=== PATIENT | female | born 1985 ===

== ENCOUNTER 2018-08-26 00:11 | Inpatient (IN) | payer BC ==
[2018-08-26] MEDS ORDERED: Sodium Chloride 0.9% 10 ML Syringe FLUSH PRN (00:22)
[2018-08-26] MEDS ORDERED: Methylergonovine 0.2 MG/1 ML Amp IM PRN (00:22)
[2018-08-26] MEDS ORDERED: Tranexamic Acid 1,000 MG in Sodium Chloride 0.9% 100 ML IV PRN (00:22)
[2018-08-26] MEDS ORDERED: Nalbuphine 10 MG/1 ML Vial IVPUSH PRN (00:22)
[2018-08-26] MEDS ORDERED: Sodium Chloride 0.9% 2.5 ML Syringe FLUSH PRN (00:22)
[2018-08-26] MEDS ORDERED: Carboprost Tromethamine 250 MCG/1 ML Amp IM PRN (00:22)
[2018-08-26] MEDS ORDERED: Misoprostol 25 MCG (1/4 of 100 MCG) Tab VAG PRN (00:22)
[2018-08-26] MEDS ORDERED: Misoprostol 200 MCG Tab PO PRN (00:22)
[2018-08-26] MEDS ORDERED: Lidocaine 1% 50 ML MDV INJECT PRN (00:22)
[2018-08-26] MEDS ORDERED: Water For Irrigation,Sterile 1,000 ML Container IRR PRN (00:22)
[2018-08-26] MEDS ORDERED: Sodium Chloride 0.9% 10 ML SDV IV PRN (00:22)
[2018-08-26] MEDS ORDERED: Terbutaline 1 MG/ML SDV SUBCUT PRN (00:22)
[2018-08-26] MEDS ORDERED: Oxytocin/0.9 % Sodium Chloride 30 UNIT/500 ML BAG IV SCH ×2 (00:30)
[2018-08-26] MEDS: Misoprostol 25 MCG (1/4 of 100 MCG) Tab VAG PRN ×2 (01:45→07:31)
[2018-08-26] MEDS: Butorphanol 1 MG/ML SDV IVPUSH PRN ×3 (14:39→19:23)
[2018-08-26] MEDS: Ondansetron 4 MG/2 ML SDV IV PRN (18:35)
[2018-08-26] MEDS: Lactated Ringers 1,000 ML IV SCH ×2 (19:00→20:01)
[2018-08-26] MEDS ORDERED: Lidocaine HCl/EPINEPHrine 5 ML IJ ONE (19:47)
--- NOTE | 2018-08-26 20:21 | PCM.PREANE ---
Preanesthetic Assessment - Anesthesia/Transfusion/Family Hx Anesthesia History: Prior Anesthesia Without Reaction Family History of Anesthesia Reaction: No Transfusion History: No Prior Transfusion(s) - Review of Systems General: No Symptoms Pulmonary: No Symptoms Cardiovascular: No Symptoms Gastrointestinal: No Symptoms Neurological: No Symptoms Other: Reports: None - Physical Assessment NPO Status Date: 08/26/18 NPO Status Time: 13:00 (burger) Height: 5 ft 3 in Weight: 87.09 kg - Lab Values: Laboratory Last Values WBC 12.40 K/uL (4.0-11.0) H 08/26/18 00:40 RBC 3.64 M/uL (4.30-5.90) L 08/26/18 00:40 Hgb 12.0 g/dL (12.0-16.0) 08/26/18 00:40 Hct 35.4 % (36.0-46.0) L 08/26/18 00:40 MCV 97.3 fL (80.0-98.0) 08/26/18 00:40 MCH 33.0 pg (27.0-32.0) H 08/26/18 00:40 MCHC 33.9 g/dL (31.0-37.0) 08/26/18 00:40 RDW Std Deviation 43.5 fl (28.0-62.0) 08/26/18 00:40 RDW Coeff of Artem 13 % (11.0-15.0) 08/26/18 00:40 Plt Count 290 K/uL (150-400) 08/26/18 00:40 MPV 11.90 fL (7.40-12.00) 08/26/18 00:40 Blood Type O POSITIVE 08/26/18 00:40 Antibody Screen NEGATIVE 08/26/18 00:40 - Allergies Allergies/Adverse Reactions: Allergies Allergy/AdvReac Type Severity Reaction Status Date / Time No Known Allergies Allergy Verified 08/26/18 00:27 PreAnesthesia Questionnaire Gastrointestinal History: Reports: Cholelithiasis MEDICAL ONCOLOGIST History: Reports: , Spontaneous Other OB/BYN History: D&C 2003 Musculoskeletal History: Reports: Other (See Below) Other Musculoskeletal History: Broken neck 1996 Neurological History: Reports: Migraines - Infectious Disease History Infectious Disease History: Reports: Herpes - Past Surgical History GI Surgical History: Reports: Cholecystectomy Female Surgical History: Reports: D&C Musculoskeletal Surgical History: Reports: Carpal Tunnel - SUBSTANCE USE Smoking Status *Q: Former Smoker Tobacco Use Within Last Twelve Months: Cigarettes Second Hand Smoke Exposure: No Recreational Drug Use History: No - CURRENT (IN HOUSE) MEDS Current Meds: Current Medications Butorphanol Tartrate (Stadol) 1 mg IVPUSH Q1H PRN PRN Reason: Pain Last Admin: 08/26/18 19:23 Dose: 1 mg Carboprost Tromethamine (Hemabate Ds) 250 mcg IM ASDIRECTED PRN PRN Reason: Post Hemorrhage Lactated Ringer's (Ringers, Lactated) 1,000 mls @ 150 mls/hr IV ASDIRECTED LIT Last Admin: 08/26/18 20:01 Dose: 999 mls/hr Oxytocin/Sodium Chloride (Oxytocin 30 Unit/500 Ml-Ns) 30 unit in 500 mls @ 999 mls/hr IV TITRATE LIT Oxytocin/Sodium Chloride (Oxytocin 30 Unit/500 Ml-Ns) 30 unit in 500 mls @ 2 mls/hr IV TITRATE LIT; Protocol Tranexamic Acid 1,000 mg/ (Sodium Chloride) 110 mls @ 660 mls/hr IV ONETIME PRN PRN Reason: Bleeding Lidocaine HCl (Xylocaine 1%) 50 ml INJECT ONETIME PRN PRN Reason: Laceration repair Methylergonovine Maleate (Methergine) 0.2 mg IM ASDIRECTED PRN PRN Reason: Post Hemorrhage Misoprostol (Cytotec) 200 mcg PO ONETIME PRN PRN Reason: Post Hemorrhage Misoprostol (Cytotec) 25 mcg VAG ONETIME PRN PRN Reason: Cervical Ripening Last Admin: 08/26/18 07:31 Dose: 25 mcg Misoprostol (Cytotec) 25 mcg VAG Q4H PRN PRN Reason: Cervical Ripening Nalbuphine HCl (Nubain) 10 mg IVPUSH Q1H PRN PRN Reason: Pain (severe 7-10) Ondansetron HCl (Zofran) 4 mg IV Q6H PRN PRN Reason: Nausea/Vomiting Last Admin: 08/26/18 18:35 Dose: 4 mg Sodium Chloride (Saline Flush) 10 ml FLUSH ASDIRECTED PRN PRN Reason: Keep Vein Open Sodium Chloride (Saline Flush) 2.5 ml FLUSH ASDIRECTED PRN PRN Reason: Keep Vein Open Sodium Chloride (Normal Saline) 10 ml IV ASDIRECTED PRN PRN Reason: IV Use Sterile Water (Sterile Water For Irrigation) 1,000 ml IRR ASDIRECTED PRN PRN Reason: delivery Terbutaline Sulfate (Brethine) 0.25 mg SUBCUT ASDIRECTED PRN PRN Reason: Tacysystole Discontinued Medications Fentanyl/Bupivacaine HCl (Wbkagvnc-Zebox-Ch 2 Mcg/Ml-0.125%) Confirm Administered Dose 100 mls @ as directed .ROUTE .STK-MED ONE Stop: 08/26/18 19:48 Lidocaine/Epinephrine (Lidocaine 1.5%-Epi 1:200,000) Confirm Administered Dose 5 ml IJ .STK-MED ONE Stop: 08/26/18 19:48
--- NOTE | 2018-08-27 00:48 | PCM.SN ---
- Free Text/Narrative Note: Called for patient rating contractions 09/02. Infusion rate increased to 10 ml per hour.
[2018-08-27] MEDS ORDERED: Bupivacaine 0.5% 30 ML SDV ONE ×3 (01:22→11:08)
[2018-08-27] MEDS: Lactated Ringers 1,000 ML IV SCH ×3 (03:12→19:08)
--- NOTE | 2018-08-27 05:21 | PCM.SN ---
- Free Text/Narrative Note: Called to dose epidural. Patient is starting to rate contractions at 4/10 and getting stronger. Patient has rested comfortably since the last bolus by Dr Saxena. 5ml of Bupivacaine 0.5% given at 0508. Tolerates well.
[2018-08-27] MEDS: Ondansetron 4 MG/2 ML SDV IV PRN ×2 (07:19→18:39)
[2018-08-27] MEDS ORDERED: fentaNYL 100 MCG/2 ML SDV ONE (07:26)
--- NOTE | 2018-08-27 07:47 | PCM.SN ---
- Free Text/Narrative Note: Patient complaining of back labor again. Dosed with 5 ml of 0.5% Bupivacaine at 0710. Got some relief but not comfortable yet. Spoke with Dr Saxena. He orders 5 ml of 0.5% Bupivacaine again and 100 mcg of Fentanyl. This is completed at 0732. Tolerated well.
--- NOTE | 2018-08-27 11:18 | PCM.SN ---
- Free Text/Narrative Note: Called to redose epidural. Patient is more comfortable lying on a side but is not tolerating supine position. Epidural bolused with 10 ml of 0.5% Bupivacaine. Tolerates well. Dr Jay is coming after noon to check the patient and determine if we can progress with labor or go to C Section.
[2018-08-27] MEDS ORDERED: Bupivacaine 0.5% 10 ML SDV ONE ×2 (15:02→20:19)
[2018-08-27] MEDS ORDERED: Ampicillin 2 GM in Sodium Chloride 0.9% 100 ML IV ONE (18:09)
[2018-08-27] MEDS ORDERED: Acetaminophen 500 MG Tab PO ONE (18:12)
[2018-08-27] MEDS ORDERED: Ampicillin 2 GM AdvVial IV ONE (18:18)
[2018-08-27] MEDS ORDERED: Sodium Chloride 0.9% 100 ML ONE (18:18)
[2018-08-27] MEDS ORDERED: Acetaminophen 500 MG Tab ONE (18:19)
[2018-08-27] MEDS ORDERED: Acetaminophen 1,000 MG in Premix Bag 1 BAG IV ONE (18:30)
[2018-08-27] MEDS ORDERED: Propofol 200 MG/20 ML SDV ONE (20:25)
[2018-08-27] MEDS ORDERED: fentaNYL 250 MCG/5 ML SDV ONE (20:25)
[2018-08-27] MEDS ORDERED: Morphine PF 10 MG/10 ML SDV ONE (20:26)
[2018-08-27] MEDS ORDERED: Clindamycin Phosphate in D5W 900 MG in Premix Bag 1 BAG IV SCH ×2 (21:00)
[2018-08-27] MEDS ORDERED: Naloxone 0.4 MG/ML Syringe IVPUSH PRN (21:32)
[2018-08-27] MEDS ORDERED: diphenhydrAMINE 50 MG/ML SDV IVPUSH PRN ×2 (21:32→22:29)
[2018-08-27] MEDS ORDERED: Nalbuphine 10 MG/1 ML Vial IVPUSH PRN (21:32)
[2018-08-27] MEDS ORDERED: Ondansetron 4 MG/2 ML SDV IVPUSH PRN ×2 (21:32→22:29)
[2018-08-27] MEDS ORDERED: fentaNYL 100 MCG/2 ML SDV IVPUSH PRN (21:32)
[2018-08-27] MEDS ORDERED: Acetaminophen/oxyCODONE 325-5 MG Tab PO PRN ×2 (21:32→22:29)
[2018-08-27] MEDS ORDERED: Octyl 2-Cyanoacrylate 1 Tube ONE (21:44)
[2018-08-27] MEDS ORDERED: HYDROmorphone 2 MG/ML Syringe ONE (21:51)
[2018-08-27] MEDS ORDERED: Ondansetron 4 MG/2 ML SDV ONE (21:51)
[2018-08-27] MEDS ORDERED: Oxytocin 10 Units/1 ML SDV ONE ×2 (21:51→22:04)
[2018-08-27] MEDS ORDERED: Bupivacaine 0.25% 10 ML SDV ONE (21:58)
[2018-08-27] MEDS ORDERED: Lanolin 100% Cream 7 GM Tube TOP PRN (22:29)
[2018-08-27] MEDS ORDERED: Bisacodyl 10 MG Supp RECTAL PRN (22:29)
[2018-08-27] MEDS ORDERED: Lactated Ringers 1,000 ML IV SCH (22:30)
--- NOTE | 2018-08-27 22:37 | PCM.OPNOTE ---
- General Post-Op/Procedure Note Date of Surgery/Procedure: 08/27/18 Operative Procedure(s): Primary Lower transverse Findings: Live male delivered at 2119 2/9 , weight 3500g , Pre Op Diagnosis: 33 yo @ 36w3d with cholestasis. Arrest of Descent Post-Op Diagnosis: same Anesthesia Technique: Epidural Primary Surgeon: Asha Clay Anesthesia Provider: zach Pathology: placenta Fluid Replacement, Intraop: 1,000 Output, Urine Amount: 200 EBL in mLs: 1,000 Complications: None Condition: Good
[2018-08-27] MEDS: Ketorolac 30 MG/ML SDV IVPUSH SCH (23:13)
--- NOTE | 2018-08-27 23:33 | PCM.POSTAN ---
POST ANESTHESIA ASSESSMENT - MENTAL STATUS Mental Status: Alert - RESPIRATORY Respiratory Status: Respiratory Rate WNL, Airway Patent, O2 Saturation Stable, Supplemental Oxygen - CARDIOVASCULAR CV Status: Pulse Rate WNL, Blood Pressure Stable - GASTROINTESTINAL GI Status: No Symptoms - POST OP HYDRATION Hydration Status: Adequate & Stable
[2018-08-28] MEDS: Ketorolac 30 MG/ML SDV IVPUSH SCH ×4 (04:57→22:15)
[2018-08-28] MEDS: Ampicillin/Sulbactam Na 3 GM in Sodium Chloride 0.9% 100 ML IV SCH ×3 (05:49→22:30)
--- NOTE | 2018-08-28 10:18 | PCM48HPAN ---
Post Anesthesia Note - EVALUATION WITHIN 48HRS OF ANESTHETIC Vital Signs in Normal Range: Yes Patient Participated in Evaluation: Yes Respiratory Function Stable: Yes Airway Patent: Yes Cardiovascular Function Stable: Yes Hydration Status Stable: Yes Pain Control Satisfactory: Yes Nausea and Vomiting Control Satisfactory: Yes Mental Status Recovered: Yes Resp Rate: 16
[2018-08-28] MEDS: Docusate Sodium 100 MG Cap PO SCH ×2 (14:04→21:38)
--- NOTE | 2018-08-29 03:17 | OR ---
SURGEON: FLOYD YANG DATE OF PROCEDURE:08/27/2018 PREOPERATIVE DIAGNOSIS: A 33-year-old, , at 36 weeks 3 days, undergoing induction of labor for cholestasis. POSTOPERATIVE DIAGNOSIS: A 33-year-old, , at 36 weeks 3 days, undergoing induction of labor for cholestasis. PROCEDURE: Primary lower segment section. ESTIMATED BLOOD LOSS: 800. IV FLUIDS: 1000. URINE OUTPUT: 200. ANESTHESIA: Epidural. NOTES AND FINDINGS: A live male delivered at 2117 hours, score is 2 and 9, weight is 3500 g. BRIEF HISTORY: She is a 33-year-old, , who was undergoing induction of labor for cholestasis. The patient had elevated LFTs and bile acid was 40. She was complaining of worsening itching. As a result, she was scheduled for induction of labor as per [facility] guidance. Induction of labor was started with Cytotec. After Cytotec, the patient received a Kwan balloon, and Kwan balloon was out, she was 5. She was ruptured, an IUPC was placed, and Pitocin was started. Pitocin had to be titrated up and down because she was occasionally having a category 2 heart tracing with late deceleration. The patient then made change all the way to fully dilated. She was encouraged to push. However, the infant was in OP position and after about 3 hours of pushing, there was no descent, so the patient was advised for . The patient understood the risks, benefits, and alternatives, and she decided to proceed. DESCRIPTION OF PROCEDURE: The patient was taken to the operating room where epidural anesthesia was topped up. She was prepared and draped in the dorsal supine position with the leftward tilt. A Pfannenstiel skin incision was made with a scalpel and carried down to the fascia with the Bovie. The fascia was incised and extended upward and laterally. The rectus muscle was in the midline down to the level of pubic symphysis. The peritoneum was entered in bluntly, and then the lower uterine segment was observed and the Hernan retractor was placed. The bladder flap was created. Lower uterine incision was made. Then also the was in cephalic position and being in cephalic position, she was encouraged. The head was attempted to be elevated out of the pelvis with some difficulty. Then, the hand was placed through the vagina to elevate the head. As a result, the head was elevated up and the baby was delivered. The cord was clamped and cut. Infant was handed over to the awaiting plasma center technician, and the uterine incision was sutured in 2 layers, first layer with 0 Vicryl and second layer with 2-0 Monocryl. The peritoneum was then closed without difficulty. Then, the rectus muscle was apposed also with 2-0 Vicryl and the fascia was closed with 0 Vicryl. The subcutaneous fat was also approximated. The skin was closed with 3-0 Monocryl on a Bhupendra needle. All instrument and pad counts were correct x2. The patient tolerated the procedure well and was taken to the recovery room in stable condition. CHRISTIN LUCAS /[id number] MTDD
[2018-08-29] MEDS: Acetaminophen/oxyCODONE 325-5 MG Tab PO PRN ×4 (06:13→22:05)
[2018-08-29] MEDS: Ibuprofen 800 MG Tab PO PRN ×2 (08:44→18:08)
[2018-08-29] MEDS: Docusate Sodium 100 MG Cap PO SCH ×2 (08:44→20:30)
--- NOTE | 2018-08-29 10:17 | PCM.PNPP ---
- General Info Date of Service: 08/28/18 Subjective Update: 33 yo P1 s/p Primary for arrest of decent , POD 1, ambulating , voiding and tolerating regular diet , Functional Status: Reports: Pain Controlled, Tolerating Diet, Ambulating, Urinating - Review of Systems General: Reports: No Symptoms HEENT: Reports: No Symptoms Pulmonary: Reports: No Symptoms Cardiovascular: Reports: No Symptoms Gastrointestinal: Reports: No Symptoms Genitourinary: Reports: No Symptoms Musculoskeletal: Reports: No Symptoms Skin: Reports: No Symptoms Neurological: Reports: No Symptoms Psychiatric: Reports: No Symptoms - General Info Date of Service: 08/29/18 - Patient Data Vital Signs - Most Recent: Last Vital Signs Temp 36.4 C 08/29/18 07:35 Pulse 68 08/29/18 07:35 Resp 17 08/29/18 07:35 BP 103/57 L 08/29/18 07:35 Pulse Ox 97 08/29/18 07:35 Weight - Most Recent: 87.09 kg I&O - Last 24 Hours: Intake & Output 08/28/18 08/29/18 08/29/18 22:59 06:59 14:59 Output Total 1700 Balance -1700 Med Orders - Current: Current Medications Bisacodyl (Dulcolax) 10 mg RECTAL ONETIME PRN PRN Reason: Constipation Butorphanol Tartrate (Stadol) 1 mg IVPUSH Q1H PRN PRN Reason: Pain Last Admin: 08/26/18 19:23 Dose: 1 mg Carboprost Tromethamine (Hemabate Ds) 250 mcg IM ASDIRECTED PRN PRN Reason: Post Hemorrhage Diphenhydramine HCl (Benadryl) 25 mg IVPUSH Q6H PRN PRN Reason: Itching or Nausea Docusate Sodium (Colace) 100 mg PO BID LIT Last Admin: 08/29/18 08:44 Dose: 100 mg Emollient Ointment (Lansinoh Hpa) 0 gm TOP ASDIRECTED PRN PRN Reason: Sore Nipples Last Admin: 08/28/18 12:09 Dose: 1 applic Fentanyl (Sublimaze) 50 mcg IVPUSH Q1H PRN PRN Reason: Pain (severe 7-10) Lactated Ringer's (Ringers, Lactated) 1,000 mls @ 150 mls/hr IV ASDIRECTED LIT Last Admin: 08/27/18 19:08 Dose: 125 mls/hr Oxytocin/Sodium Chloride (Oxytocin 30 Unit/500 Ml-Ns) 30 unit in 500 mls @ 999 mls/hr IV TITRATE LIT Oxytocin/Sodium Chloride (Oxytocin 30 Unit/500 Ml-Ns) 30 unit in 500 mls @ 2 mls/hr IV TITRATE LIT; Protocol Last Titration: 08/27/18 19:47 Dose: 24 munits/min, 24 mls/hr Tranexamic Acid 1,000 mg/ (Sodium Chloride) 110 mls @ 660 mls/hr IV ONETIME PRN PRN Reason: Bleeding Lactated Ringer's (Ringers, Lactated) 1,000 mls @ 125 mls/hr IV ASDIRECTED LIT Last Admin: 08/28/18 02:19 Dose: 125 mls/hr Ibuprofen (Motrin) 800 mg PO Q8H PRN PRN Reason: mild pain or fever Last Admin: 08/29/18 08:44 Dose: 800 mg Lidocaine HCl (Xylocaine 1%) 50 ml INJECT ONETIME PRN PRN Reason: Laceration repair Methylergonovine Maleate (Methergine) 0.2 mg IM ASDIRECTED PRN PRN Reason: Post Hemorrhage Misoprostol (Cytotec) 200 mcg PO ONETIME PRN PRN Reason: Post Hemorrhage Misoprostol (Cytotec) 25 mcg VAG ONETIME PRN PRN Reason: Cervical Ripening Last Admin: 08/26/18 07:31 Dose: 25 mcg Misoprostol (Cytotec) 25 mcg VAG Q4H PRN PRN Reason: Cervical Ripening Nalbuphine HCl (Nubain) 10 mg IVPUSH Q1H PRN PRN Reason: Pain (severe 7-10) Nalbuphine HCl (Nubain) 5 mg IVPUSH ASDIRECTED PRN PRN Reason: Itching Ondansetron HCl (Zofran) 4 mg IV Q6H PRN PRN Reason: Nausea/Vomiting Last Admin: 08/27/18 18:39 Dose: 4 mg Ondansetron HCl (Zofran) 4 mg IVPUSH Q6H PRN PRN Reason: Nausea Ondansetron HCl (Zofran) 4 mg IVPUSH Q4H PRN PRN Reason: Nausea/Vomiting Last Admin: 08/28/18 03:48 Dose: 4 mg Oxycodone/Acetaminophen (Percocet 325-5 Mg) 2 tab PO Q6H PRN PRN Reason: Pain (moderate 4-6) Oxycodone/Acetaminophen (Percocet 325-5 Mg) 1 tab PO Q4H PRN PRN Reason: Pain (moderate 4-6) Last Admin: 08/29/18 06:13 Dose: 1 tab Oxycodone/Acetaminophen (Percocet 325-5 Mg) 2 tab PO Q4H PRN PRN Reason: Pain (moderate 4-6) Sodium Chloride (Saline Flush) 10 ml FLUSH ASDIRECTED PRN PRN Reason: Keep Vein Open Sodium Chloride (Saline Flush) 2.5 ml FLUSH ASDIRECTED PRN PRN Reason: Keep Vein Open Sodium Chloride (Normal Saline) 10 ml IV ASDIRECTED PRN PRN Reason: IV Use Sterile Water (Sterile Water For Irrigation) 1,000 ml IRR ASDIRECTED PRN PRN Reason: delivery Terbutaline Sulfate (Brethine) 0.25 mg SUBCUT ASDIRECTED PRN PRN Reason: Tacysystole Discontinued Medications Acetaminophen (Tylenol Extra Strength) 1,000 mg PO ONETIME ONE Stop: 08/27/18 18:13 Last Admin: 08/28/18 14:03 Dose: Not Given Acetaminophen (Tylenol Extra Strength) Confirm Administered Dose 1,000 mg .ROUTE .STK-MED ONE Stop: 08/27/18 18:20 Last Admin: 08/28/18 14:04 Dose: Not Given Ampicillin Sodium (Ampicillin) Confirm Administered Dose 2 gm IV .STK-MED ONE Stop: 08/27/18 18:19 Last Admin: 08/28/18 14:03 Dose: Not Given Bupivacaine HCl (Marcaine 0.5%) Confirm Administered Dose 30 ml .ROUTE .STK-MED ONE Stop: 08/27/18 01:23 Last Admin: 08/28/18 14:02 Dose: Not Given Bupivacaine HCl (Marcaine 0.5%) Confirm Administered Dose 30 ml .ROUTE .STK-MED ONE Stop: 08/27/18 04:58 Last Admin: 08/28/18 14:02 Dose: Not Given Bupivacaine HCl (Marcaine 0.5%) Confirm Administered Dose 30 ml .ROUTE .STK-MED ONE Stop: 08/27/18 11:09 Last Admin: 08/28/18 14:03 Dose: Not Given Bupivacaine HCl (Sensorcaine-Mpf 0.5%) Confirm Administered Dose 10 ml .ROUTE .[facility] ONE Stop: 08/27/18 15:03 Last Admin: 08/28/18 14:03 Dose: Not Given Bupivacaine HCl (Sensorcaine-Mpf 0.5%) Confirm Administered Dose 20 ml .ROUTE .[facility] ONE Stop: 08/27/18 20:20 Last Admin: 08/28/18 14:04 Dose: Not Given Bupivacaine HCl (Sensorcaine-Mpf 0.25%) Confirm Administered Dose 10 ml .ROUTE .[facility] ONE Stop: 08/27/18 21:59 Last Admin: 08/28/18 14:04 Dose: Not Given Diphenhydramine HCl (Benadryl) 25 mg IVPUSH Q4H PRN PRN Reason: Itching Stop: 08/28/18 21:32 Fentanyl (Sublimaze) Confirm Administered Dose 100 mcg .ROUTE .[facility] ONE Stop: 08/27/18 07:27 Last Admin: 08/28/18 14:02 Dose: Not Given Fentanyl (Sublimaze) Confirm Administered Dose 250 mcg .ROUTE .[facility] ONE Stop: 08/27/18 20:26 Hydromorphone HCl (Dilaudid) Confirm Administered Dose 2 mg .ROUTE .[facility] ONE Stop: 08/27/18 21:52 Fentanyl/Bupivacaine HCl (Xrkuaprs-Qhgip-Fc 2 Mcg/Ml-0.125%) Confirm Administered Dose 100 mls @ as directed .ROUTE .[facility] ONE Stop: 08/26/18 19:48 Fentanyl/Bupivacaine HCl (Ptoetcrg-Gisld-Zy 2 Mcg/Ml-0.125%) Confirm Administered Dose 100 mls @ as directed .ROUTE .[facility] ONE Stop: 08/27/18 02:32 Last Admin: 08/28/18 14:02 Dose: Not Given Fentanyl/Bupivacaine HCl (Rgjabeuz-Cjhtg-Ma 2 Mcg/Ml-0.125%) Confirm Administered Dose 100 mls @ as directed .ROUTE .[facility] ONE Stop: 08/27/18 10:01 Last Admin: 08/28/18 14:03 Dose: Not Given Fentanyl/Bupivacaine HCl (Dlbdmfaj-Bwtpo-Xm 2 Mcg/Ml-0.125%) Confirm Administered Dose 100 mls @ as directed .ROUTE .STK-MED ONE Stop: 08/27/18 16:42 Last Admin: 08/28/18 14:03 Dose: Not Given Fentanyl/Bupivacaine HCl (Mtcpooja-Vxouz-Bv 2 Mcg/Ml-0.125%) Confirm Administered Dose 100 mls @ as directed .ROUTE .STK-MED ONE Stop: 08/27/18 17:01 Last Admin: 08/28/18 14:03 Dose: Not Given Ampicillin Sodium 2 gm/ Sodium (Chloride) 100 mls @ 200 mls/hr IV ONETIME ONE Stop: 08/27/18 18:38 Last Admin: 08/27/18 18:38 Dose: 200 mls/hr Gentamicin Sulfate 100 mg/ (Sodium Chloride) 52.5 mls @ 100 mls/hr IV ONETIME ONE Stop: 08/27/18 18:41 Last Admin: 08/27/18 19:21 Dose: 100 mls/hr Sodium Chloride (Normal Saline) Confirm Administered Dose 100 mls @ as directed .ROUTE .STK-MED ONE Stop: 08/27/18 18:19 Last Admin: 08/28/18 14:04 Dose: Not Given Acetaminophen 1,000 mg/ Premix 100 mls @ 400 mls/hr IV NOW ONE Stop: 08/27/18 18:44 Last Admin: 08/27/18 19:01 Dose: 400 mls/hr Acetaminophen (Ofirmev) Confirm Administered Dose 100 mls @ as directed IV .STK- MED ONE Stop: 08/27/18 18:35 Last Admin: 08/28/18 14:04 Dose: Not Given Clindamycin Phosphate 900 mg/ (Sodium Chloride) 56 mls @ 100 mls/hr IV Q8H LIT Stop: 08/28/18 21:04 Clindamycin Phosphate 900 mg/ (Premix) 50 mls @ 100 mls/hr IV Q8H LIT Ampicillin Sodium/Sulbactam (Sodium 3 gm/ Sodium Chloride) 100 mls @ 200 mls/ hr IV Q8H LIT Stop: 08/28/18 22:29 Last Admin: 08/28/18 22:30 Dose: 200 mls/hr Ketorolac Tromethamine (Toradol) 30 mg IVPUSH Q6H [facility] Stop: 08/28/18 22:31 Last Admin: 08/28/18 22:15 Dose: 30 mg Lidocaine/Epinephrine (Lidocaine 1.5%-Epi 1:200,000) Confirm Administered Dose 5 ml IJ .STK-MED ONE Stop: 08/26/18 19:48 Morphine Sulfate (Duramorph Pf) Confirm Administered Dose 10 mg .ROUTE .STK-MED ONE Stop: 08/27/18 20:27 Naloxone HCl (Narcan) 0.1 mg IVPUSH ONETIME PRN PRN Reason: Respiratory Depression Stop: 08/28/18 21:32 Octyl Cyanoacrylate (Dermabond Advance) Confirm Administered Dose 1 applic .ROUTE .STK-MED ONE Stop: 08/27/18 21:45 Last Admin: 08/28/18 14:04 Dose: Not Given Ondansetron HCl (Zofran) Confirm Administered Dose 4 mg .ROUTE .STK-MED ONE Stop: 08/27/18 21:52 Oxytocin (Pitocin) Confirm Administered Dose 30 unit .ROUTE .STK-MED ONE Stop: 08/27/18 21:52 Oxytocin (Pitocin) Confirm Administered Dose 20 unit .ROUTE .STK-MED ONE Stop: 08/27/18 22:05 Propofol (Diprivan 20 Ml) Confirm Administered Dose 200 mg .ROUTE .STK-MED ONE Stop: 08/27/18 20:26 - Interaction Support Person: - Recovery Exam Fundal Tone: Firm Fundal Level: At Umbilicus Fundal Placement: Midline Lochia Amount: Scant Lochia Color: Rubra/Red Perineum Description: Intact, Minimal Bruising/Swelling Episiotomy/Laceration: None Bladder Status: Voiding Urinary Elimination: Voided - Exam General: Alert HEENT: Pupils Equal Lungs: Clear to Auscultation Cardiovascular: Regular Rate, Regular Rhythm GI/Abdominal Exam: Normal Bowel Sounds Skin: Warm Psy/Mental Status: Alert - Problem List & Annotations (1) delivery delivered SNOMED Code(s): 106867000 Code(s): O82 - ENCOUNTER FOR DELIVERY WITHOUT INDICATION Status: Acute Current Visit: Yes - Problem List Review Problem List Initiated/Reviewed/Updated: Yes - My Orders Last 24 Hours: My Active Orders 08/29/18 04:30 Ibuprofen [Motrin] 800 mg PO Q8H PRN 08/29/18 10:10 BASIC METABOLIC PANEL,BMP [CHEM] Urgent - Assessment Assessment:: 33 yo P1 s/p Primary LTCS POD1 stable - Plan Plan:: Pain control as need CMP with normal LFTs and elevated Creatinine ( probably prerenal due to high BUN ) Routine care
--- NOTE | 2018-08-29 10:20 | PCM.PNPP ---
- General Info Date of Service: 08/29/18 Subjective Update: 33 yo P1 s/p Primary for arrest of decent , POD 2, ambulating , voiding and tolerating regular diet , Functional Status: Reports: Pain Controlled, Tolerating Diet, Ambulating, Urinating - Review of Systems General: Reports: No Symptoms HEENT: Reports: No Symptoms Pulmonary: Reports: No Symptoms Cardiovascular: Reports: No Symptoms Gastrointestinal: Reports: No Symptoms Genitourinary: Reports: No Symptoms Musculoskeletal: Reports: No Symptoms Skin: Reports: No Symptoms Neurological: Reports: No Symptoms Psychiatric: Reports: No Symptoms - General Info Date of Service: 08/29/18 - Patient Data Vital Signs - Most Recent: Last Vital Signs Temp 36.4 C 08/29/18 07:35 Pulse 68 08/29/18 07:35 Resp 17 08/29/18 07:35 BP 103/57 L 08/29/18 07:35 Pulse Ox 97 08/29/18 07:35 Weight - Most Recent: 87.09 kg I&O - Last 24 Hours: Intake & Output 08/28/18 08/29/18 08/29/18 22:59 06:59 14:59 Output Total 1700 Balance -1700 Med Orders - Current: Current Medications Bisacodyl (Dulcolax) 10 mg RECTAL ONETIME PRN PRN Reason: Constipation Butorphanol Tartrate (Stadol) 1 mg IVPUSH Q1H PRN PRN Reason: Pain Last Admin: 08/26/18 19:23 Dose: 1 mg Carboprost Tromethamine (Hemabate Ds) 250 mcg IM ASDIRECTED PRN PRN Reason: Post Hemorrhage Diphenhydramine HCl (Benadryl) 25 mg IVPUSH Q6H PRN PRN Reason: Itching or Nausea Docusate Sodium (Colace) 100 mg PO BID LIT Last Admin: 08/29/18 08:44 Dose: 100 mg Emollient Ointment (Lansinoh Hpa) 0 gm TOP ASDIRECTED PRN PRN Reason: Sore Nipples Last Admin: 08/28/18 12:09 Dose: 1 applic Fentanyl (Sublimaze) 50 mcg IVPUSH Q1H PRN PRN Reason: Pain (severe 7-10) Lactated Ringer's (Ringers, Lactated) 1,000 mls @ 150 mls/hr IV ASDIRECTED LIT Last Admin: 08/27/18 19:08 Dose: 125 mls/hr Oxytocin/Sodium Chloride (Oxytocin 30 Unit/500 Ml-Ns) 30 unit in 500 mls @ 999 mls/hr IV TITRATE LIT Oxytocin/Sodium Chloride (Oxytocin 30 Unit/500 Ml-Ns) 30 unit in 500 mls @ 2 mls/hr IV TITRATE LIT; Protocol Last Titration: 08/27/18 19:47 Dose: 24 munits/min, 24 mls/hr Tranexamic Acid 1,000 mg/ (Sodium Chloride) 110 mls @ 660 mls/hr IV ONETIME PRN PRN Reason: Bleeding Lactated Ringer's (Ringers, Lactated) 1,000 mls @ 125 mls/hr IV ASDIRECTED LIT Last Admin: 08/28/18 02:19 Dose: 125 mls/hr Ibuprofen (Motrin) 800 mg PO Q8H PRN PRN Reason: mild pain or fever Last Admin: 08/29/18 08:44 Dose: 800 mg Lidocaine HCl (Xylocaine 1%) 50 ml INJECT ONETIME PRN PRN Reason: Laceration repair Methylergonovine Maleate (Methergine) 0.2 mg IM ASDIRECTED PRN PRN Reason: Post Hemorrhage Misoprostol (Cytotec) 200 mcg PO ONETIME PRN PRN Reason: Post Hemorrhage Misoprostol (Cytotec) 25 mcg VAG ONETIME PRN PRN Reason: Cervical Ripening Last Admin: 08/26/18 07:31 Dose: 25 mcg Misoprostol (Cytotec) 25 mcg VAG Q4H PRN PRN Reason: Cervical Ripening Nalbuphine HCl (Nubain) 10 mg IVPUSH Q1H PRN PRN Reason: Pain (severe 7-10) Nalbuphine HCl (Nubain) 5 mg IVPUSH ASDIRECTED PRN PRN Reason: Itching Ondansetron HCl (Zofran) 4 mg IV Q6H PRN PRN Reason: Nausea/Vomiting Last Admin: 08/27/18 18:39 Dose: 4 mg Ondansetron HCl (Zofran) 4 mg IVPUSH Q6H PRN PRN Reason: Nausea Ondansetron HCl (Zofran) 4 mg IVPUSH Q4H PRN PRN Reason: Nausea/Vomiting Last Admin: 08/28/18 03:48 Dose: 4 mg Oxycodone/Acetaminophen (Percocet 325-5 Mg) 2 tab PO Q6H PRN PRN Reason: Pain (moderate 4-6) Oxycodone/Acetaminophen (Percocet 325-5 Mg) 1 tab PO Q4H PRN PRN Reason: Pain (moderate 4-6) Last Admin: 08/29/18 06:13 Dose: 1 tab Oxycodone/Acetaminophen (Percocet 325-5 Mg) 2 tab PO Q4H PRN PRN Reason: Pain (moderate 4-6) Sodium Chloride (Saline Flush) 10 ml FLUSH ASDIRECTED PRN PRN Reason: Keep Vein Open Sodium Chloride (Saline Flush) 2.5 ml FLUSH ASDIRECTED PRN PRN Reason: Keep Vein Open Sodium Chloride (Normal Saline) 10 ml IV ASDIRECTED PRN PRN Reason: IV Use Sterile Water (Sterile Water For Irrigation) 1,000 ml IRR ASDIRECTED PRN PRN Reason: delivery Terbutaline Sulfate (Brethine) 0.25 mg SUBCUT ASDIRECTED PRN PRN Reason: Tacysystole Discontinued Medications Acetaminophen (Tylenol Extra Strength) 1,000 mg PO ONETIME ONE Stop: 08/27/18 18:13 Last Admin: 08/28/18 14:03 Dose: Not Given Acetaminophen (Tylenol Extra Strength) Confirm Administered Dose 1,000 mg .ROUTE .STK-MED ONE Stop: 08/27/18 18:20 Last Admin: 08/28/18 14:04 Dose: Not Given Ampicillin Sodium (Ampicillin) Confirm Administered Dose 2 gm IV .STK-MED ONE Stop: 08/27/18 18:19 Last Admin: 08/28/18 14:03 Dose: Not Given Bupivacaine HCl (Marcaine 0.5%) Confirm Administered Dose 30 ml .ROUTE .STK-MED ONE Stop: 08/27/18 01:23 Last Admin: 08/28/18 14:02 Dose: Not Given Bupivacaine HCl (Marcaine 0.5%) Confirm Administered Dose 30 ml .ROUTE .STK-MED ONE Stop: 08/27/18 04:58 Last Admin: 08/28/18 14:02 Dose: Not Given Bupivacaine HCl (Marcaine 0.5%) Confirm Administered Dose 30 ml .ROUTE .STK-MED ONE Stop: 08/27/18 11:09 Last Admin: 08/28/18 14:03 Dose: Not Given Bupivacaine HCl (Sensorcaine-Mpf 0.5%) Confirm Administered Dose 10 ml .[address] .[facility] ONE Stop: 08/27/18 15:03 Last Admin: 08/28/18 14:03 Dose: Not Given Bupivacaine HCl (Sensorcaine-Mpf 0.5%) Confirm Administered Dose 20 ml .[address] .[facility] ONE Stop: 08/27/18 20:20 Last Admin: 08/28/18 14:04 Dose: Not Given Bupivacaine HCl (Sensorcaine-Mpf 0.25%) Confirm Administered Dose 10 ml .ROUTE .[facility] ONE Stop: 08/27/18 21:59 Last Admin: 08/28/18 14:04 Dose: Not Given Diphenhydramine HCl (Benadryl) 25 mg IVPUSH Q4H PRN PRN Reason: Itching Stop: 08/28/18 21:32 Fentanyl (Sublimaze) Confirm Administered Dose 100 mcg .[address] .[facility] ONE Stop: 08/27/18 07:27 Last Admin: 08/28/18 14:02 Dose: Not Given Fentanyl (Sublimaze) Confirm Administered Dose 250 mcg .[address]TE .[facility] ONE Stop: 08/27/18 20:26 Hydromorphone HCl (Dilaudid) Confirm Administered Dose 2 mg .[address] .[facility] ONE Stop: 08/27/18 21:52 Fentanyl/Bupivacaine HCl (Kuouwref-Uuhhn-Dt 2 Mcg/Ml-0.125%) Confirm Administered Dose 100 mls @ as directed .ROUTE .[facility] ONE Stop: 08/26/18 19:48 Fentanyl/Bupivacaine HCl (Dbcqalhg-Mfjhs-Ud 2 Mcg/Ml-0.125%) Confirm Administered Dose 100 mls @ as directed .ROUTE .[facility] ONE Stop: 08/27/18 02:32 Last Admin: 08/28/18 14:02 Dose: Not Given Fentanyl/Bupivacaine HCl (Vvqhbfzw-Howzy-Kv 2 Mcg/Ml-0.125%) Confirm Administered Dose 100 mls @ as directed .ROUTE .[facility] ONE Stop: 08/27/18 10:01 Last Admin: 08/28/18 14:03 Dose: Not Given Fentanyl/Bupivacaine HCl (Mewqdkzj-Bmzfj-Ol 2 Mcg/Ml-0.125%) Confirm Administered Dose 100 mls @ as directed .ROUTE .STK-MED ONE Stop: 08/27/18 16:42 Last Admin: 08/28/18 14:03 Dose: Not Given Fentanyl/Bupivacaine HCl (Mryxnauh-Xwlwe-Xy 2 Mcg/Ml-0.125%) Confirm Administered Dose 100 mls @ as directed .ROUTE .STK-MED ONE Stop: 08/27/18 17:01 Last Admin: 08/28/18 14:03 Dose: Not Given Ampicillin Sodium 2 gm/ Sodium (Chloride) 100 mls @ 200 mls/hr IV ONETIME ONE Stop: 08/27/18 18:38 Last Admin: 08/27/18 18:38 Dose: 200 mls/hr Gentamicin Sulfate 100 mg/ (Sodium Chloride) 52.5 mls @ 100 mls/hr IV ONETIME ONE Stop: 08/27/18 18:41 Last Admin: 08/27/18 19:21 Dose: 100 mls/hr Sodium Chloride (Normal Saline) Confirm Administered Dose 100 mls @ as directed .ROUTE .STK-MED ONE Stop: 08/27/18 18:19 Last Admin: 08/28/18 14:04 Dose: Not Given Acetaminophen 1,000 mg/ Premix 100 mls @ 400 mls/hr IV NOW ONE Stop: 08/27/18 18:44 Last Admin: 08/27/18 19:01 Dose: 400 mls/hr Acetaminophen (Ofirmev) Confirm Administered Dose 100 mls @ as directed IV .STK- MED ONE Stop: 08/27/18 18:35 Last Admin: 08/28/18 14:04 Dose: Not Given Clindamycin Phosphate 900 mg/ (Sodium Chloride) 56 mls @ 100 mls/hr IV Q8H LIT Stop: 08/28/18 21:04 Clindamycin Phosphate 900 mg/ (Premix) 50 mls @ 100 mls/hr IV Q8H LIT Ampicillin Sodium/Sulbactam (Sodium 3 gm/ Sodium Chloride) 100 mls @ 200 mls/ hr IV Q8H LIT Stop: 08/28/18 22:29 Last Admin: 08/28/18 22:30 Dose: 200 mls/hr Ketorolac Tromethamine (Toradol) 30 mg IVPUSH Q6H [facility] Stop: 08/28/18 22:31 Last Admin: 08/28/18 22:15 Dose: 30 mg Lidocaine/Epinephrine (Lidocaine 1.5%-Epi 1:200,000) Confirm Administered Dose 5 ml IJ .STK-MED ONE Stop: 08/26/18 19:48 Morphine Sulfate (Duramorph Pf) Confirm Administered Dose 10 mg .ROUTE .STK-MED ONE Stop: 08/27/18 20:27 Naloxone HCl (Narcan) 0.1 mg IVPUSH ONETIME PRN PRN Reason: Respiratory Depression Stop: 08/28/18 21:32 Octyl Cyanoacrylate (Dermabond Advance) Confirm Administered Dose 1 applic .ROUTE .STK-MED ONE Stop: 08/27/18 21:45 Last Admin: 08/28/18 14:04 Dose: Not Given Ondansetron HCl (Zofran) Confirm Administered Dose 4 mg .ROUTE .STK-MED ONE Stop: 08/27/18 21:52 Oxytocin (Pitocin) Confirm Administered Dose 30 unit .ROUTE .STK-MED ONE Stop: 08/27/18 21:52 Oxytocin (Pitocin) Confirm Administered Dose 20 unit .ROUTE .STK-MED ONE Stop: 08/27/18 22:05 Propofol (Diprivan 20 Ml) Confirm Administered Dose 200 mg .ROUTE .STK-MED ONE Stop: 08/27/18 20:26 - Interaction Support Person: - Recovery Exam Fundal Tone: Firm Fundal Level: At Umbilicus Fundal Placement: Midline Lochia Amount: Scant Lochia Color: Rubra/Red Perineum Description: Intact, Minimal Bruising/Swelling Episiotomy/Laceration: None Bladder Status: Voiding Urinary Elimination: Voided - Exam General: Alert HEENT: Pupils Equal Lungs: Clear to Auscultation Cardiovascular: Regular Rate, Regular Rhythm GI/Abdominal Exam: Normal Bowel Sounds Extremities: Normal Inspection Skin: Warm Wound/Incisions: Dressing Dry and Intact Neurological: No New Focal Deficit Psy/Mental Status: Alert - Problem List & Annotations (1) delivery delivered SNOMED Code(s): 086008253 Code(s): O82 - ENCOUNTER FOR DELIVERY WITHOUT INDICATION Status: Acute Current Visit: Yes - Problem List Review Problem List Initiated/Reviewed/Updated: Yes - My Orders Last 24 Hours: My Active Orders 08/29/18 04:30 Ibuprofen [Motrin] 800 mg PO Q8H PRN 08/29/18 10:10 BASIC METABOLIC PANEL,BMP [CHEM] Urgent - Assessment Assessment:: 33 yo P1 s/p Primary LTCS POD2 , BMP pending, she is breast and bottle feeding , will stay 1 day due to hyperbilirubinemia, normal lochia - Plan Plan:: Pain control as need BMP today , will follow Discharge home tomorrow
[2018-08-29 10:43] LABS: CHLORIDE,CL 106 mmol/L (98-107); SODIUM,NA 139 mmol/L (136-145)
[2018-08-30] MEDS: Ibuprofen 800 MG Tab PO PRN (02:20)
--- NOTE | 2018-08-30 07:49 | PCM.DCSUM1 ---
Discharge Summary - Hospital Course Free Text/Narrative:: POD#3. Doing well. Ready for discharge. Precautions discussed. Diagnosis: Stroke: No - Discharge Data Discharge Date: 08/30/18 Discharge Disposition: Home, Self-Care 01 Condition: Good - Patient Summary/Data Operative Procedure(s) Performed: Primary Lower transverse - Patient Instructions Diet: Usual Diet as Tolerated Activity: Apply Ice, No Lifting Over 10 Pounds, No Lifting Over 20 Pounds Driving: Do Not Drive (Do not drive until painfree without medications.) Showering/Bathing: May Shower Wound/Incision Care: Keep Operative Site/Wound Site Clean and Dry Notify Provider of: Fever, Increased Pain, Swelling and Redness, Drainage Other/Special Instructions: Nothing per vagina for 6 weeks. Call office if fever over 101 F, uncontrolled pain or bleeding more than a large pad per hour. May use percocet or ibuprofen or Tylenol for pain. Continue to take vitamins while . visit in 2 weeks and 6 weeks - Discharge Plan *PRESCRIPTION DRUG MONITORING PROGRAM REVIEWED*: Yes *COPY OF PRESCRIPTION DRUG MONITORING REPORT IN PATIENT JAYDON: Yes Prescriptions/Med Rec: Acetaminophen/oxyCODONE [Percocet 325-5 MG] 1 - 2 tab PO Q4H PRN 5 Days #20 tablet PRN Reason: Pain (Moderate 4-6) Ibuprofen [Motrin] 800 mg PO Q8H PRN 5 Days #30 tablet PRN Reason: mild pain or fever Home Medications: Home Meds Acetaminophen/oxyCODONE [Percocet 325-5 MG] 1 - 2 tab PO Q4H PRN 5 Days #20 tablet 08/29/18 [Rx] Ibuprofen [Motrin] 800 mg PO Q8H PRN 5 Days #30 tablet 08/29/18 [Rx] Referrals: [facility] [Outside] Asah Clay MD [Physician] - (2 week- September 13@ 1:30pm w/ Dr. Jay week- October 11 @ 11:15am w/ Dr. Jay) - Discharge Summary/Plan Comment DC Time >30 min.: No - Patient Data Vitals - Most Recent: Last Vital Signs Temp 36.2 C 08/30/18 07:20 Pulse 72 08/30/18 07:20 Resp 16 08/30/18 07:20 BP 118/68 08/30/18 07:20 Pulse Ox 97 08/30/18 07:20 Weight - Most Recent: 87.09 kg Lab Results - Last 24 hrs: Laboratory Results - last 24 hr 08/29/18 Range/Units 10:21 Sodium 139 (136-145) mmol/L Potassium 4.5 (3.5-5.1) mmol/L Chloride 106 (98-107) mmol/L Carbon Dioxide 24.9 (21.0-32.0) mmol/L BUN 16 (7.0-18.0) mg/dL Creatinine 0.8 (0.6-1.0) mg/dL Est Cr Clr Drug Dosing 84.29 mL/min Estimated GFR (MDRD) > 60.0 ml/min Glucose 67 L (74-106) mg/dL Calcium 8.8 (8.5-10.1) mg/dL Med Orders - Current: Current Medications Bisacodyl (Dulcolax) 10 mg RECTAL ONETIME PRN PRN Reason: Constipation Butorphanol Tartrate (Stadol) 1 mg IVPUSH Q1H PRN PRN Reason: Pain Last Admin: 08/26/18 19:23 Dose: 1 mg Carboprost Tromethamine (Hemabate Ds) 250 mcg IM ASDIRECTED PRN PRN Reason: Post Hemorrhage Diphenhydramine HCl (Benadryl) 25 mg IVPUSH Q6H PRN PRN Reason: Itching or Nausea Docusate Sodium (Colace) 100 mg PO BID [facility] Last Admin: 08/29/18 20:30 Dose: 100 mg Emollient Ointment (Lansinoh Hpa) 0 gm TOP ASDIRECTED PRN PRN Reason: Sore Nipples Last Admin: 08/28/18 12:09 Dose: 1 applic Fentanyl (Sublimaze) 50 mcg IVPUSH Q1H PRN PRN Reason: Pain (severe 7-10) Lactated Ringer's (Ringers, Lactated) 1,000 mls @ 150 mls/hr IV ASDIRECTED [facility] Last Admin: 08/27/18 19:08 Dose: 125 mls/hr Oxytocin/Sodium Chloride (Oxytocin 30 Unit/500 Ml-Ns) 30 unit in 500 mls @ 999 mls/hr IV TITRATE [facility] Oxytocin/Sodium Chloride (Oxytocin 30 Unit/500 Ml-Ns) 30 unit in 500 mls @ 2 mls/hr IV TITRATE LIT; Protocol Last Titration: 08/27/18 19:47 Dose: 24 munits/min, 24 mls/hr Tranexamic Acid 1,000 mg/ (Sodium Chloride) 110 mls @ 660 mls/hr IV ONETIME PRN PRN Reason: Bleeding Lactated Ringer's (Ringers, Lactated) 1,000 mls @ 125 mls/hr IV ASDIRECTED LIT Last Admin: 08/28/18 02:19 Dose: 125 mls/hr Ibuprofen (Motrin) 800 mg PO Q8H PRN PRN Reason: mild pain or fever Last Admin: 08/30/18 02:20 Dose: 800 mg Lidocaine HCl (Xylocaine 1%) 50 ml INJECT ONETIME PRN PRN Reason: Laceration repair Methylergonovine Maleate (Methergine) 0.2 mg IM ASDIRECTED PRN PRN Reason: Post Hemorrhage Misoprostol (Cytotec) 200 mcg PO ONETIME PRN PRN Reason: Post Hemorrhage Misoprostol (Cytotec) 25 mcg VAG ONETIME PRN PRN Reason: Cervical Ripening Last Admin: 08/26/18 07:31 Dose: 25 mcg Misoprostol (Cytotec) 25 mcg VAG Q4H PRN PRN Reason: Cervical Ripening Nalbuphine HCl (Nubain) 10 mg IVPUSH Q1H PRN PRN Reason: Pain (severe 7-10) Nalbuphine HCl (Nubain) 5 mg IVPUSH ASDIRECTED PRN PRN Reason: Itching Ondansetron HCl (Zofran) 4 mg IV Q6H PRN PRN Reason: Nausea/Vomiting Last Admin: 08/27/18 18:39 Dose: 4 mg Ondansetron HCl (Zofran) 4 mg IVPUSH Q6H PRN PRN Reason: Nausea Ondansetron HCl (Zofran) 4 mg IVPUSH Q4H PRN PRN Reason: Nausea/Vomiting Last Admin: 08/28/18 03:48 Dose: 4 mg Oxycodone/Acetaminophen (Percocet 325-5 Mg) 2 tab PO Q6H PRN PRN Reason: Pain (moderate 4-6) Oxycodone/Acetaminophen (Percocet 325-5 Mg) 1 tab PO Q4H PRN PRN Reason: Pain (moderate 4-6) Last Admin: 08/29/18 22:05 Dose: 1 tab Oxycodone/Acetaminophen (Percocet 325-5 Mg) 2 tab PO Q4H PRN PRN Reason: Pain (moderate 4-6) Sodium Chloride (Saline Flush) 10 ml FLUSH ASDIRECTED PRN PRN Reason: Keep Vein Open Sodium Chloride (Saline Flush) 2.5 ml FLUSH ASDIRECTED PRN PRN Reason: Keep Vein Open Sodium Chloride (Normal Saline) 10 ml IV ASDIRECTED PRN PRN Reason: IV Use Sterile Water (Sterile Water For Irrigation) 1,000 ml IRR ASDIRECTED PRN PRN Reason: delivery Terbutaline Sulfate (Brethine) 0.25 mg SUBCUT ASDIRECTED PRN PRN Reason: Tacysystole Discontinued Medications Acetaminophen (Tylenol Extra Strength) 1,000 mg PO ONETIME ONE Stop: 08/27/18 18:13 Last Admin: 08/28/18 14:03 Dose: Not Given Acetaminophen (Tylenol Extra Strength) Confirm Administered Dose 1,000 mg .ROUTE .STK-MED ONE Stop: 08/27/18 18:20 Last Admin: 08/28/18 14:04 Dose: Not Given Ampicillin Sodium (Ampicillin) Confirm Administered Dose 2 gm IV .STK-MED ONE Stop: 08/27/18 18:19 Last Admin: 08/28/18 14:03 Dose: Not Given Bupivacaine HCl (Marcaine 0.5%) Confirm Administered Dose 30 ml .ROUTE .STK-MED ONE Stop: 08/27/18 01:23 Last Admin: 08/28/18 14:02 Dose: Not Given Bupivacaine HCl (Marcaine 0.5%) Confirm Administered Dose 30 ml .ROUTE .STK-MED ONE Stop: 08/27/18 04:58 Last Admin: 08/28/18 14:02 Dose: Not Given Bupivacaine HCl (Marcaine 0.5%) Confirm Administered Dose 30 ml .ROUTE .STK-MED ONE Stop: 08/27/18 11:09 Last Admin: 08/28/18 14:03 Dose: Not Given Bupivacaine HCl (Sensorcaine-Mpf 0.5%) Confirm Administered Dose 10 ml .ROUTE .STK-MED ONE Stop: 08/27/18 15:03 Last Admin: 08/28/18 14:03 Dose: Not Given Bupivacaine HCl (Sensorcaine-Mpf 0.5%) Confirm Administered Dose 20 ml .ROUTE .[facility] ONE Stop: 08/27/18 20:20 Last Admin: 08/28/18 14:04 Dose: Not Given Bupivacaine HCl (Sensorcaine-Mpf 0.25%) Confirm Administered Dose 10 ml .ROUTE .[facility] ONE Stop: 08/27/18 21:59 Last Admin: 08/28/18 14:04 Dose: Not Given Diphenhydramine HCl (Benadryl) 25 mg IVPUSH Q4H PRN PRN Reason: Itching Stop: 08/28/18 21:32 Fentanyl (Sublimaze) Confirm Administered Dose 100 mcg .ROUTE .[facility] ONE Stop: 08/27/18 07:27 Last Admin: 08/28/18 14:02 Dose: Not Given Fentanyl (Sublimaze) Confirm Administered Dose 250 mcg .ROUTE .[facility] ONE Stop: 08/27/18 20:26 Hydromorphone HCl (Dilaudid) Confirm Administered Dose 2 mg .ROUTE .[facility] ONE Stop: 08/27/18 21:52 Fentanyl/Bupivacaine HCl (Iwdqejhl-Xyuqn-Va 2 Mcg/Ml-0.125%) Confirm Administered Dose 100 mls @ as directed .ROUTE .[facility] ONE Stop: 08/26/18 19:48 Fentanyl/Bupivacaine HCl (Txllkafn-Grqct-Ar 2 Mcg/Ml-0.125%) Confirm Administered Dose 100 mls @ as directed .ROUTE .[facility] ONE Stop: 08/27/18 02:32 Last Admin: 08/28/18 14:02 Dose: Not Given Fentanyl/Bupivacaine HCl (Wmhxsuka-Gvkem-Db 2 Mcg/Ml-0.125%) Confirm Administered Dose 100 mls @ as directed .ROUTE .[facility] ONE Stop: 08/27/18 10:01 Last Admin: 08/28/18 14:03 Dose: Not Given Fentanyl/Bupivacaine HCl (Eprpommo-Ohmsr-He 2 Mcg/Ml-0.125%) Confirm Administered Dose 100 mls @ as directed .ROUTE .[facility] ONE Stop: 08/27/18 16:42 Last Admin: 08/28/18 14:03 Dose: Not Given Fentanyl/Bupivacaine HCl (Pdmgctqy-Sbgxz-Fp 2 Mcg/Ml-0.125%) Confirm Administered Dose 100 mls @ as directed .ROUTE .STK-MED ONE Stop: 08/27/18 17:01 Last Admin: 08/28/18 14:03 Dose: Not Given Ampicillin Sodium 2 gm/ Sodium (Chloride) 100 mls @ 200 mls/hr IV ONETIME ONE Stop: 08/27/18 18:38 Last Admin: 08/27/18 18:38 Dose: 200 mls/hr Gentamicin Sulfate 100 mg/ (Sodium Chloride) 52.5 mls @ 100 mls/hr IV ONETIME ONE Stop: 08/27/18 18:41 Last Admin: 08/27/18 19:21 Dose: 100 mls/hr Sodium Chloride (Normal Saline) Confirm Administered Dose 100 mls @ as directed .ROUTE .STK-MED ONE Stop: 08/27/18 18:19 Last Admin: 08/28/18 14:04 Dose: Not Given Acetaminophen 1,000 mg/ Premix 100 mls @ 400 mls/hr IV NOW ONE Stop: 08/27/18 18:44 Last Admin: 08/27/18 19:01 Dose: 400 mls/hr Acetaminophen (Ofirmev) Confirm Administered Dose 100 mls @ as directed IV .STK- MED ONE Stop: 08/27/18 18:35 Last Admin: 08/28/18 14:04 Dose: Not Given Clindamycin Phosphate 900 mg/ (Sodium Chloride) 56 mls @ 100 mls/hr IV Q8H [facility] Stop: 08/28/18 21:04 Clindamycin Phosphate 900 mg/ (Premix) 50 mls @ 100 mls/hr IV Q8H [facility] Ampicillin Sodium/Sulbactam (Sodium 3 gm/ Sodium Chloride) 100 mls @ 200 mls/ hr IV Q8H [facility] Stop: 08/28/18 22:29 Last Admin: 08/28/18 22:30 Dose: 200 mls/hr Ketorolac Tromethamine (Toradol) 30 mg IVPUSH Q6H [facility] Stop: 08/28/18 22:31 Last Admin: 08/28/18 22:15 Dose: 30 mg Lidocaine/Epinephrine (Lidocaine 1.5%-Epi 1:200,000) Confirm Administered Dose 5 ml IJ .STK-MED ONE Stop: 08/26/18 19:48 Morphine Sulfate (Duramorph Pf) Confirm Administered Dose 10 mg .ROUTE .STK-MED ONE Stop: 08/27/18 20:27 Naloxone HCl (Narcan) 0.1 mg IVPUSH ONETIME PRN PRN Reason: Respiratory Depression Stop: 08/28/18 21:32 Octyl Cyanoacrylate (Dermabond Advance) Confirm Administered Dose 1 applic .ROUTE .STK-MED ONE Stop: 08/27/18 21:45 Last Admin: 08/28/18 14:04 Dose: Not Given Ondansetron HCl (Zofran) Confirm Administered Dose 4 mg .ROUTE .STK-MED ONE Stop: 08/27/18 21:52 Oxytocin (Pitocin) Confirm Administered Dose 30 unit .ROUTE .STK-MED ONE Stop: 08/27/18 21:52 Oxytocin (Pitocin) Confirm Administered Dose 20 unit .ROUTE .STK-MED ONE Stop: 08/27/18 22:05 Propofol (Diprivan 20 Ml) Confirm Administered Dose 200 mg .ROUTE .STK-MED ONE Stop: 08/27/18 20:26
[2018-08-30] MEDS: Acetaminophen/oxyCODONE 325-5 MG Tab PO PRN (08:03)
[2018-08-30] MEDS: Docusate Sodium 100 MG Cap PO SCH (08:55)
== END 2018-08-30 13:20 | disposition home or self-care (01) | DRG 540 ==
LOC: MW.OBCHECK 00:11 → MW.OB 00:13 → MW.OBCHECK 00:23 → MW.OB 08-27 14:57 → OBSVTOIN 08-27 21:17 → MW.OB 08-28 03:02
PROVIDERS: ADMIT Obstetrics & Gynecology; ATTEND Obstetrics & Gynecology
PROC: 10D00Z1 Extraction of Products of Conception, Low, Open Approach (ICD-10-PCS; principal; 2018-08-27)
PROC: 4A1HXCZ Monitoring of Products of Conception, Cardiac Rate, External Approach (ICD-10-PCS; 2018-08-27)
DX: O26.62 Liver and biliary tract disorders in childbirth (principal); O62.1 Secondary uterine inertia; O76 Abnormality in fetal heart rate and rhythm complicating labor and delivery; O41.1230 Chorioamnionitis, third trimester, not applicable or unspecified; K83.1 Obstruction of bile duct; Z87.891 Personal history of nicotine dependence; Z3A.36 36 weeks gestation of pregnancy; Z37.0 Single live birth
CPT/HCPCS: 36415; 51702; 59025; 59200; 80048; 80053; 82803; 85025; 85027; 86850; 86900; 86901; A4217; A9270-GY; J0131; J0290; J0295; J0595; J1170; J1580; J1885; J2270; J2405; J2590; J2704; J3010; J3490; J7030; J7050; J7120

== ENCOUNTER 2021-06-20 05:18 | Inpatient (IN) | payer BC ==
[2021-06-20] MEDS ORDERED: Sodium Chloride 0.9% 2.5 ML Syringe FLUSH PRN (05:22)
[2021-06-20] MEDS ORDERED: Oxytocin/0.9 % Sodium Chloride 30 UNIT/500 ML BAG IV PRN (05:22)
[2021-06-20] MEDS ORDERED: Sodium Chloride 0.9% 20 ML SDV IV PRN (05:22)
[2021-06-20] MEDS ORDERED: Sodium Chloride 0.9% 10 ML Syringe FLUSH PRN (05:22)
[2021-06-20] MEDS: Lactated Ringers 1,000 ML IV SCH ×4 (06:14→16:31)
[2021-06-20] MEDS ORDERED: Hydrocortisone Sodium Succinate 100 MG/2 ML SDV IVPUSH ONE (06:15)
[2021-06-20] MEDS ORDERED: Hydrocortisone Sodium Succinate 100 MG/2 ML SDV ONE (07:14)
[2021-06-20] MEDS ORDERED: ePHEDrine 50 MG/ML SDV IVPUSH PRN (07:22)
[2021-06-20] MEDS ORDERED: Morphine PF 10 MG/10 ML SDV ONE (07:25)
[2021-06-20] MEDS ORDERED: Hydrocortisone Sodium Succinate 250 MG/2 ML SDV IV ONE (07:30)
[2021-06-20] MEDS ORDERED: ceFAZolin 2 GM in Premix Bag 1 BAG IV ONE (07:30)
[2021-06-20] MEDS ORDERED: Ondansetron 4 MG/2 ML SDV ONE (07:31)
[2021-06-20] MEDS ORDERED: Ketorolac 30 MG/ML SDV ONE (07:31)
[2021-06-20] MEDS ORDERED: Oxytocin 10 Units/1 ML SDV ONE (07:31)
[2021-06-20] MEDS ORDERED: Phenylephrine 1% 10 MG/ML SDV ONE (07:31)
[2021-06-20] MEDS ORDERED: Water For Injection, Sterile 20 ML ONE (07:33)
[2021-06-20] MEDS ORDERED: ceFAZolin 1 GM Vial ONE (07:33)
[2021-06-20 07:40] LABS: BLOOD UREA NITROGEN,BUN 9 mg/dL (7.0-18.0); CARBON DIOXIDE,CO2 22.2 mmol/L (21.0-32.0); CHLORIDE,CL 101 mmol/L (98-107); GLUCOSE RANDOM 109 mg/dL (74-106); POTASSIUM,K 4.2 mmol/L (3.5-5.1); SODIUM,NA 136 mmol/L (136-145)
[2021-06-20] MEDS ORDERED: diphenhydrAMINE 50 MG/ML SDV IVPUSH PRN (08:54)
[2021-06-20] MEDS ORDERED: Acetaminophen/oxyCODONE 325-5 MG Tab PO PRN ×2 (08:54)
[2021-06-20] MEDS ORDERED: Bisacodyl 10 MG Supp RECTAL PRN (08:54)
[2021-06-20] MEDS ORDERED: Lanolin 100% Cream 7 GM Tube TOP PRN (08:54)
[2021-06-20] MEDS ORDERED: Ibuprofen 800 MG Tab PO PRN (08:54)
[2021-06-20] MEDS: Ondansetron 4 MG/2 ML SDV IVPUSH PRN ×2 (11:13→18:31)
[2021-06-20] MEDS ORDERED: Ondansetron 4 MG/2 ML SDV IVPUSH ONE (14:07)
[2021-06-20] MEDS: Ketorolac 30 MG/ML SDV IVPUSH SCH ×3 (15:00→23:07)
[2021-06-20] MEDS: Hydrocortisone Sodium Succinate 100 MG/2 ML SDV IV SCH (16:32)
[2021-06-20] MEDS: Docusate Sodium 100 MG Cap PO SCH (23:29)
[2021-06-21] MEDS: Hydrocortisone Sodium Succinate 100 MG/2 ML SDV IV SCH ×2 (00:03→08:25)
[2021-06-21] MEDS: Lactated Ringers 1,000 ML IV SCH (00:03)
[2021-06-21] MEDS: Ketorolac 30 MG/ML SDV IVPUSH SCH ×2 (03:18→08:23)
[2021-06-21] MEDS: Docusate Sodium 100 MG Cap PO SCH ×2 (07:29→08:23)
[2021-06-21] MEDS ORDERED: Ibuprofen 800 MG Tab PO PRN (09:05)
== END 2021-06-21 13:15 | disposition home or self-care (01) | DRG 540 ==
LOC: MW.OB 05:18
PROVIDERS: ADMIT Obstetrics & Gynecology; ATTEND Obstetrics & Gynecology
PROC: 10D00Z1 Extraction of Products of Conception, Low, Open Approach (ICD-10-PCS; principal; 2021-06-20)
DX: O34.211 Maternal care for low transverse scar from previous cesarean delivery (principal); Z37.0 Single live birth; O26.62 Liver and biliary tract disorders in childbirth; K83.1 Obstruction of bile duct; O60.14X0 Preterm labor third trimester with preterm delivery third trimester, not applicable or unspecified; Z20.822 Contact with and (suspected) exposure to COVID-19; Z3A.36 36 weeks gestation of pregnancy; Z87.891 Personal history of nicotine dependence; Z90.49 Acquired absence of other specified parts of digestive tract
CPT/HCPCS: 01961; 36415; 80053; 85014; 85018; 85027; 86592; 86850; 86900; 86901; A9270-GY; J0690; J1200; J1720; J1885; J2274; J2370; J2405; J2590; J7120; U0002